=== PATIENT | female | born 1985 | race African-American/Black ===

== ENCOUNTER 2020-09-02 09:31 | Emergency (ER) | payer OTHER, SELFPAY ==
[2020-09-02 09:43] VITALS: BP 121/72; PULSE 78; RESP 16; TEMP 36.4; O2SAT 100
--- NOTE | 2020-09-02 09:48 | ED.DENTAL ---
HPI - Dental/Oral General Chief complaint: Dental/Oral Stated complaint: Tooth Pain Source: patient and RN notes reviewed Limitations: no limitations History of Present Illness HPI Narrative: The patient, previously mostly healthy with poor dentition, presents with tooth ache. Patient states she has a couple day history of right upper tooth pain associated with mild swelling. She has had prior dental procedures there [about 6 months ago], no fever, hoarseness, trismus; symptoms worse with eating. She would like refill of her inhaler. Related Data Allergies Allergy/AdvReac Type Severity Reaction Status Date / Time prochlorperazine Allergy Intermediate hives Verified 04/30/18 12:13 NSAIDS (Non-Steroidal Allergy Mild Hives / Verified 04/30/18 12:13 Anti-Inflamma Red Face Review of Systems Review of Systems: Narrative: General/Constitutional: No weight loss,fever Eyes: N0: Redness,discharge Ears/Nose/Throat: No: Epistaxis,ear discharge Respiratory: Denies: Hemoptysis Gastrointestinal: No Vomiting, Bleeding-rectal Skin: No Lumps, eruption Neurologic: No Focal Weakness,Sz Hematologic: Denies: Petechiae/Purpura Psychiatric: No: Suicida ideationl All Other Systems: Reviewed and Negative PMFSH Comments At time of signature, agree with nursing past medical, surgical, social and family history. There is no relevant family history pertinent to the presenting complaint Exam Narrative: Exam Narrative: General Appearance: Well appearing, Well nourished, Obese EYE: PERRLA, EOMI, Conjunctiva clear Ears: External ear normal, Auditory canal normal Nose: Normal nose Mouth/Throat: Normal appearing (with scant right upper jaw swelling), Normal lips, MM moist, Uvula midline (scattered dental caries and fillings,, with rare fracture) Neck: Supple, No adenopathy Respiratory: Airway patent, No respiratory distress, Musculoskeletal: Full ROM, Non tender, Normal strength Skin: Warm, Dry, Normal color Neurological: A&O x3, Speech clear, CN II-XII intact Psychiatric: Normal mood, Normal affect Course Vital Signs Vital signs: Vital Signs Temperature 97.6 F 09/02/20 09:43 Pulse Rate 78 09/02/20 09:43 Respiratory Rate 16 09/02/20 09:43 Blood Pressure 121/72 09/02/20 09:43 Pulse Oximetry 100 09/02/20 09:43 Temperature 97.6 F 09/02/20 09:43 Pulse Rate 78 09/02/20 09:43 Respiratory Rate 16 09/02/20 09:43 Blood Pressure 121/72 09/02/20 09:43 Pulse Oximetry 100 09/02/20 09:43 Discharge Plan Discharge Clinical Impression: Gingivitis, Toothache Patient Disposition: Home, Self-Care Condition: Stable Instructions: Toothache (ED) Prescriptions: New amoxicillin 875 mg tablet 875 mg PO Q12H Qty: 14 RF: 0 lidocaine HCl [Lidocaine Viscous] 2 % solution 5 ml MUCOUS MEM QID PRN (Reason: pain) Qty: 100 RF: 1 tramadol 50 mg tablet 50 mg PO Q6H PRN (Reason: pain) Qty: 10 RF: 0 albuterol sulfate [Ventolin HFA] 90 mcg/actuation HFA aerosol inhaler 2 puff INHALATION QID PRN (Reason: shortness of breath or wheezing) Qty: 1 RF: 1 Follow-up/Referrals: PHYSICIAN NOT ON STAFF,NONSTAFF [Primary Care Provider] - Stand Alone Forms: Work/School Release IP
== END 2020-09-02 10:05 | disposition home or self-care (01) ==
PROVIDERS: Emergency Provider Emergency Medicine
DX: K05.10 Chronic gingivitis, plaque induced (principal); K08.89 Other specified disorders of teeth and supporting structures; J45.909 Unspecified asthma, uncomplicated
CPT/HCPCS: 99213; G0463

== ENCOUNTER 2020-10-20 19:34 | Emergency (ER) | payer OTHER, SELFPAY ==
--- NOTE | 2020-10-20 19:39 | ED.DENTAL ---
HPI - Dental/Oral General Chief complaint: Dental/Oral Stated complaint: tooth pain Source: patient and RN notes reviewed Limitations: no limitations History of Present Illness HPI Narrative: The patient, previously history of poor dentition, presents with upper jaw pain. 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 She complains of mild left upper incisor pain that is worse with eating. No actual swelling, laxity/looseness, subluxation, fever. Related Data Allergies Allergy/AdvReac Type Severity Reaction Status Date / Time prochlorperazine Allergy Intermediate hives Verified 10/20/20 19:47 NSAIDS (Non-Steroidal Allergy Mild Hives / Verified 10/20/20 19:47 Anti-Inflamma Red Face Review of Systems Review of Systems: Narrative: General/Constitutional: No weight loss,fever Eyes: N0: Redness,discharge Ears/Nose/Throat: No: Epistaxis,ear discharge Respiratory: Denies: Hemoptysis Gastrointestinal: No Vomiting, Bleeding-rectal Skin: No Lumps, eruption Neurologic: No Focal Weakness,Sz Hematologic: Denies: Petechiae/Purpura Psychiatric: No: Suicida ideationl All Other Systems: Reviewed and Negative PMFSH Social History Social History Gender identity (if verbalized by the patient): Female Comments At time of signature, agree with nursing past medical, surgical, social and family history. There is no relevant family history pertinent to the presenting complaint Exam Narrative: Exam Narrative: General Appearance: Well appearing, Well nourished, Obese EYE: PERRLA, EOMI, Conjunctiva clear Ears: External ear normal, Auditory canal normal Nose: Normal nose Mouth/Throat: Normal appearing (without jaw swelling), Normal lips, MM moist, Uvula midline -scattered dental caries and fillings, no dental mobility Neck: Supple, No adenopathy Musculoskeletal: Full ROM, Non tender, Normal strength Skin: Warm, Dry, Normal color Neurological: A&O x3, Speech clear, CN II-XII intact Psychiatric: Normal mood, Normal affect Course Vital Signs Vital signs: Vital Signs Temperature 97.3 F L 10/20/20 19:41 Pulse Rate 71 10/20/20 19:41 Respiratory Rate 16 10/20/20 19:41 Blood Pressure 124/93 H 10/20/20 19:41 Pulse Oximetry 99 10/20/20 19:41 Temperature 97.3 F L 10/20/20 19:41 Pulse Rate 71 10/20/20 19:41 Respiratory Rate 16 10/20/20 19:41 Blood Pressure 124/93 H 10/20/20 19:41 Pulse Oximetry 99 10/20/20 19:41 Discharge Plan Discharge Clinical Impression: Contusion of jaw Qualifiers: Encounter type: initial encounter Qualified Code(s): S00.83XA - Contusion of other part of head, initial encounter Patient Disposition: Home, Self-Care Condition: Stable Instructions: Toothache (ED), Facial Contusion (ED) Prescriptions: New lidocaine HCl [Lidocaine Viscous] 2 % solution 5 ml MUCOUS MEM QID PRN (Reason: pain) Qty: 100 RF: 0 acetaminophen-codeine 120 mg-12 mg /5 mL (5 mL) solution 7.5 ml PO Q8H Qty: 100 RF: 0 amoxicillin 500 mg capsule 500 mg PO TID Qty: 14 RF: 0 Follow-up/Referrals: UNKNOWN,DOCTOR [Primary Care Provider] - Stand Alone Forms: Work/School Release IP
[2020-10-20 19:41] VITALS: BP 124/93; PULSE 71; RESP 16; TEMP 36.3; O2SAT 99
== END 2020-10-20 19:57 | disposition home or self-care (01) ==
PROVIDERS: Emergency Provider Emergency Medicine
DX: S00.83XA Contusion of other part of head, initial encounter (principal); X58.XXXA Exposure to other specified factors, initial encounter; J45.909 Unspecified asthma, uncomplicated
CPT/HCPCS: 99213; G0463

== ENCOUNTER 2021-11-07 19:40 | Emergency (ER) | payer OTHER, SELFPAY ==
--- NOTE | 2021-11-07 19:43 | ED.HA ---
HPI - Headache General Chief Complaint: Headache Stated Complaint: lund Time Seen by Provider: 11/07/21 19:44 Source: patient and RN notes reviewed Mode of arrival: ambulatory Limitations: no limitations History of Present Illness HPI Narrative: 36-year-old female presents to the [facility] with complaints of a headache to the left side of her head. Has had the symptoms for 2 to 3 days. States that she has taken ibuprofen at home. Denies any allergies to NSAIDs. Has had nausea without vomiting, intermittent blurry vision. States it feels similar to migraines she has had in the past Denies any chest pain or shortness of breath. Denies fevers. Has a history of hypertension. Patient reports that she has had tramadol in the past, explained to patient that we do not prescribe narcotics for migraine headaches. Drove herself here without issue. No neurodeficits noted. MD elicited complaint: headache Pertinent past history: migraines Onset (ago): day(s) (2-3) Location: left and temporal Treatments prior to arrival: ibuprofen Related Data Allergies Allergy/AdvReac Type Severity Reaction Status Date / Time prochlorperazine Allergy Intermediate hives Verified 11/07/21 19:42 Review of Systems Review of Systems: All systems reviewed & are unremarkable except as noted in HPI and below Constitutional: Constitutional: Reports no additional constitutional complaints, Denies chills and Denies fever(s) Eyes: Eyes: Reports no additional eye complaints ENT: Reports system reviewed and no additional complaints, except as documented Cardiovascular: Cardiovascular: Reports no additional cardiovascular complaints Respiratory: Respiratory: Reports no additional respiratory complaints Gastrointestinal: Gastrointestinal: Reports no additional gastrointestinal complaints Musculoskeletal: Musculoskeletal: Reports no additional musculoskeletal complaints Integumentary/Breasts: Skin/Breast: Reports system reviewed and no additional complaints, except as docu Neurologic: Reports as per HPI and Reports headache(s) (left temporal area) Psychiatric: Psychiatric: Reports no additional psychiatric complaints Allergic/Immunologic: Allergic/Immunologic: Reports no additional allergic/immunologic complaints [facility] Social History Social History Gender identity (if verbalized by the patient): Female Comments At the time of my signature, I reviewed and agree with the nursing past medical, surgical, social, and family history. There is no relevant family history pertinent to the patient complaint. Exam Const: General: healthy appearing, no acute distress and alert Nutritional Appearance: well nourished Orientation/consciousness: patient oriented x3 Limitations: no limitations HENMT: Head: normal to inspection Ears: external ears normal, TM's normal bilaterally and EAC's normal General nose exam: Normal external nose present Mouth: Yes Normal oral and palatal mucosa present and Yes lip normal Throat: posterior oropharynx normal and uvula midline Eyes: General: appearance normal, both eyes and all related structures Conjunctivae: conjunctivae normal Pupils: Equal, round and reactive pupils present EOM: EOMs intact bilaterally Neck: Neck: normal visual inspection, no lymphadenopathy and no meningeal signs Chest: Chest palpation & inspection: normal inspection of the chest Resp: Effort & Inspection: normal respiratory effort and no use of accessory muscles Auscultation: clear to auscultation bilaterally, no crackles, no rales, no rhonchi and no wheezes Cardio: Rate: regular rate Rhythm: regular rhythm Back/Spine/Pelvis: Cervical Spine: normal cervical lordosis Thoracic/Lumbar Spine: thoracic and lumbar spine normal to inspection Skin: General skin exam: normal color Rashes: no rashes Wounds: no wounds Neuro: General: patient oriented x3, moves all extremities, no meningeal signs and
[2021-11-07 19:46] VITALS: BP 141/88; PULSE 74; RESP 18; TEMP 36.9; O2SAT 100
[2021-11-07] MEDS: KETOROLAC (*BKC) 60 MG/2 ML VIAL IM (20:03)
== END 2021-11-07 20:25 | disposition home or self-care (01) ==
PROVIDERS: Emergency Provider Nurse Practitioner
DX: R51.9 Headache, unspecified (principal); J45.909 Unspecified asthma, uncomplicated
CPT/HCPCS: 96372; 99213; G0463; J1885

== ENCOUNTER 2021-11-08 11:31 | Emergency (ER) | payer OTHER, SELFPAY ==
[2021-11-08 11:40] VITALS: BP 126/85; PULSE 85; RESP 16; TEMP 36.2; O2SAT 100
--- NOTE | 2021-11-08 12:34 | ED.DENTAL ---
HPI - Dental/Oral General Chief complaint: Dental/Oral Stated complaint: Facial Swelling Time Seen by Provider: 11/08/21 12:26 Source: patient Mode of arrival: ambulatory Limitations: no limitations History of Present Illness HPI Narrative: Patient presents today complaining of a throbbing pain to her left upper jaw that started this morning. She is also complaining of swelling to the same area that extends below her eye and to the left side of her nose that was present when she woke up this morning. States, It's probably and tooth. States she does have some bad teeth and reports that when they went to pull some teeth they damaged a nerve in the same area. She was seen [facility] yesterday for a migraine and was treated with IM Toradol and rx for Ibuprofen. She denies any shortness of breath or difficulty swallowing. She currently rates her pain 10/10 and has been taking ibuprofen with some relief. Related Data Allergies Allergy/AdvReac Type Severity Reaction Status Date / Time prochlorperazine Allergy Intermediate hives Verified 11/08/21 11:34 Review of Systems Review of Systems: CONSTITUTIONAL: Denies body aches, fever, chills, or sweats. EYES: Denies visual changes, redness, or discharge. ENT: Denies rhinorrhea, congestion, sore throat, or otalgia. +Left upper jaw pain and swelling CARDIOVASCULAR: Denies chest pain, palpitations, or edema. RESPIRATORY: Denies cough or dyspnea. GASTROINTESTINAL: Denies abdominal pain, nausea, vomiting, or diarrhea. GENITOURINARY: Denies dysuria or hematuria. SKIN: Denies rash, itching, or wounds. MUSCULOSKELETAL: Denies back pain, joint pain, or myalgia. NEUROLOGIC: Denies headache, numbness, tingling, or weakness. PSYCH: Denies depression or anxiety. PMFSH Social History Social History Gender identity (if verbalized by the patient): Female Comments At time of signature, I have reviewed and agree with nursing past medical, surgical, social and family history unless otherwise noted. Please see nursing chart for further information. There is no relevant family history pertinent to the presenting complaint Exam Narrative: GENERAL: Well-appearing, well-nourished, and in no acute distress. HEAD: Normocephalic, atraumatic. EYES: EOMI. No redness or drainage. Conjunctivae normal. ENT: Mucous membranes pink and moist. Nares clear. No rhinorrhea. Throat normal. Uvula midline. Poor dentition. Multiple dark and missing teeth. Mild to moderate swelling in the left upper jawline extending below her left eye and to the left side of her nose. This area is tender to palpation. NECK: Normal AROM. CHEST: No respiratory distress. Clear to auscultation. HEART: Regular rate and rhythm. No murmur appreciated. Normal peripheral pulses. EXTREMITIES: Normal range of motion. No edema. SKIN: Warm, dry, no rash. Capillary refill normal. Normal skin turgor. NEURO: No focal deficits. Alert and oriented x3. Gait steady. PSYCH: Normal affect. No signs of depression or anxiety. Course Course Level of Care: Express Care Visit Vital Signs Vital signs: Vital Signs Temperature 97.1 F L 11/08/21 11:40 Pulse Rate 85 11/08/21 11:40 Respiratory Rate 16 11/08/21 11:40 Blood Pressure 126/85 11/08/21 11:40 Pulse Oximetry 100 11/08/21 11:40 Oxygen Delivery Room Air 11/08/21 11:40 Temperature 97.1 F L 11/08/21 11:40 Pulse Rate 85 11/08/21 11:40 Respiratory Rate 16 11/08/21 11:40 Blood Pressure 126/85 11/08/21 11:40 Pulse Oximetry 100 11/08/21 11:40 Oxygen Delivery Room Air 11/08/21 11:40 Reviewed. Pt has been instructed to follow up with her PCP regarding her elevated blood pressure today. MDM - Dental/Oral Differential Diagnosis Differential diagnosis: Likely gingival abscess, dental caries, toothache, dental abscess and fracture of tooth Critical Care Time Critical Care Time Critical Care Time: No
== END 2021-11-08 12:38 | disposition home or self-care (01) ==
PROVIDERS: Emergency Provider Nurse Practitioner
DX: K04.7 Periapical abscess without sinus (principal)
CPT/HCPCS: 99213; G0463

== ENCOUNTER 2021-12-27 12:37 | Emergency (ER) | payer OTHER, SELFPAY ==
[2021-12-27 12:45] VITALS: BP 134/82; PULSE 82; RESP 16; TEMP 36.7; O2SAT 99
[2021-12-27 12:46] VITALS: BP 134/82; PULSE 82; RESP 16; TEMP 36.7; O2SAT 99
--- NOTE | 2021-12-27 12:55 | ED.EYEPROB ---
HPI - Eye Problem General Chief complaint: Eye Problems Stated complaint: Headaches, light sensitivity Time Seen by Provider: 12/27/21 12:56 History of Present Illness HPI Narrative: Pavan Cuellar is a 36 yo female with no PMH [facility] of left-sided eye pain that she rates a 7 out of 10; right eye slightly reddened and rates it as 4 out of 10. Think she may have scratched her eye on her contacts Related Data Allergies Allergy/AdvReac Type Severity Reaction Status Date / Time prochlorperazine Allergy Intermediate hives Verified 12/27/21 12:46 Review of Systems Review of Systems: CONSTITUTIONAL: Denies fever, chills, sweats. EYES: Denies visual changes, redness, discharge. Bilateral eye pain possibly from contact scratch ENT: Denies rhinorrhea, congestion, sore throat, otalgia. CARDIOVASCULAR: Denies chest pain, palpitations, edema. RESPIRATORY: Denies dyspnea, wheezing, cough GASTROINTESTINAL: Denies abdominal pain, nausea, vomiting, diarrhea. GENITOURINARY: Denies dysuria, hematuria, abnormal discharge SKIN: Denies rash or itching. NEUROLOGIC: Denies numbness, or focal weakness. PSYCHIATRIC: Denies anxiety or depression. [facility] Past Medical History Medical History (Updated 12/27/21 @ 13:17 by Patito Restrepo CNP) Asthma Social History Social History (Updated 12/27/21 @ 12:59 by Patito Restrepo CNP) Smoking status: Never smoker Gender identity (if verbalized by the patient): Female Comments At time of signature, I agree with nursing past medical, surgical, social and family history. There is no relevant family history pertinent to the presenting complaint. Exam Narrative: GENERAL: This is a well-nourished, well-developed patient, in mild distress. HEAD: normocephalic, atraumatic. EYES: PERRL. Sclera mildly injected bilaterally. Vision is grossly intact. Bilateral eyes are painful after use of tetracaine EARS: External ears normal, . Hearing grossly intact. NOSE: External nose normal without nasal discharge, nares without redness, no rhinorrhea. THROAT: Mucous membranes moist, NECK: Neck supple, non-tender CARDIOVASCULAR: Regular rate and rhythm without murmurs, gallops, or rubs. RESPIRATORY: Clear to auscultation. Breath sounds equal bilaterally. No wheezes, rales, or rhonchi. GASTROINTESTINAL: Not done, SKIN: warm, intact with no suspicious lesions or rash, good texture and turgor. NEURO: awake, alert, and oriented to person, place and time. There were no obvious focal neurologic abnormalities. Steady gait EXTREMITIES: Normal range of motion. BACK: Nontender without deformity Course Course Emergency Course: Bilateral eye pain left worse than right Fluorescein stain applied after tetracaine drops instilled. 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 does not improve Level of Care: Express Care Visit Vital Signs Vital signs: Vital Signs Temperature 98.1 F 12/27/21 12:45 Pulse Rate 82 12/27/21 12:45 Respiratory Rate 16 12/27/21 12:45 Blood Pressure 134/82 12/27/21 12:45 Pulse Oximetry 99 12/27/21 12:45 Oxygen Delivery Room Air 12/27/21 12:45 Temperature 98.1 F 12/27/21 12:46 Pulse Rate 82 12/27/21 12:46 Respiratory Rate 16 12/27/21 12:46 Blood Pressure 134/82 12/27/21 12:46 Pulse Oximetry 99 12/27/21 12:46 Oxygen Delivery Room Air 12/27/21 12:46 MDM - Eye Problem Differential Diagnosis Differential diagnosis: Likely corneal abrasion, conjunctivitis and other Critical Care Time Critical Care Time Critical Care Time: No Discharge Plan Discharge Clinical Impression: Bacterial conjunctivitis Patient Disposition: Home, Self-Care Condition: Stable Instructions: Antibiotic Form, Conjunctivitis (ED) Additional Instructions: Use eyedrops to 4 times a day a
--- NOTE | 2021-12-27 13:03 | PC.NURSE ---
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
== END 2021-12-27 13:22 | disposition home or self-care (01) ==
PROVIDERS: Emergency Provider Nurse Practitioner
DX: H10.89 Other conjunctivitis (principal); J45.909 Unspecified asthma, uncomplicated
CPT/HCPCS: 99213; A9270; G0463

== ENCOUNTER 2022-03-11 12:35 | Emergency (ER) | payer OTHER, SELFPAY ==
--- NOTE | 2022-03-11 12:40 | ED.GENADULT ---
HPI - General Adult General Chief complaint: Dental/Oral Stated complaint: Face Swelling Time Seen by Provider: 03/11/22 12:40 Source: patient Mode of arrival: ambulatory Limitations: no limitations History of Present Illness HPI narrative: Pavan is a 36-year-old female patient presenting to the clinic today with complaints of facial swelling x2 days. She reports her pain is currently 10 at 10. She states she thinks there may be an exposed nerve. She is having pain to the left upper gum with pain also over this maxillary sinuses. Patient states that she has been having some dental work done and thinks her may be an exposed /infected nerve. She has taken only Tylenol today for her pain Related Data Allergies Allergy/AdvReac Type Severity Reaction Status Date / Time prochlorperazine Allergy Intermediate hives Verified 03/11/22 12:45 Review of Systems Review of Systems: Pertinent positives per HPI. Patient denies any fever, chills, rash, headache, visual changes, dizziness, cough, runny nose, sore throat, shortness of breath, chest pain, palpitations, nausea, vomiting, diarrhea, constipation, abdominal pain, or any urinary issues. [facility], [facility] Past Medical History Medical History Asthma Social History Social History Smoking status: Never smoker Gender identity (if verbalized by the patient): Female Comments At the time of my signature, I reviewed and agree with the nursing past medical, surgical, social, and family history. There is no relevant family history pertinent to the patient complaint. Exam Narrative: General: Well-developed, well nourished, in no apparent distress Head: Normocephalic, atraumatic Eyes: Pupils equally round and reactive to light bilaterally, EOM intact, sclera and conjunctive clear, no discharge, lids normal Ears: TMs intact and clear, ear canals clear, no drainage, grossly hearing normal. Nose: Nares patent, no discharge, severe inflammation to left anterior and posterior turbinates, severe left maxillary sinus tenderness. Mouth: Oropharynx without lesions or masses, good dentition, MMM. Tenderness to palpation of the left upper gum and raising of the left upper lip. Unable to visualize the gum due to discomfort- patient will not allow me to raise her lips up to visualize the gums. Neck: Supple, trachea midline, no enlargement of anterior or posterior cervical nodes, no thyroid masses or goiter palpable. Cardio: Regular rate and rhythm, s1 and s2 normal, no murmur appreciated. Resp: Clear to auscultation bilaterally anteriorly and posteriorly, no rhonchi, rales, wheezing or rubs Course Course Emergency Course: Portions of this record may have been created with voice recognition software. Level of Care: Express Care Visit Vital Signs Vital signs: Vital Signs Temperature 36.7 C 03/11/22 12:42 Pulse Rate 92 03/11/22 12:42 Respiratory Rate 16 03/11/22 12:42 Blood Pressure 137/94 H 03/11/22 12:42 Pulse Oximetry 98 03/11/22 12:42 Oxygen Delivery Room Air 03/11/22 12:42 Temperature 36.7 C 03/11/22 12:42 Pulse Rate 92 03/11/22 12:42 Respiratory Rate 16 03/11/22 12:42 Blood Pressure 137/94 H 03/11/22 12:42 Pulse Oximetry 98 03/11/22 12:42 Oxygen Delivery Room Air 03/11/22 12:42 Vital signs reviewed Medical Decision Making MDM Narrative Medical decision making narrative: At the time of visit patient is resting comfortably on the exam table. Exam was very limited due to patient's extreme pain however I suspect she may have a dental abscess versus sinusitis to the left maxillary sinus. Will send in prescription for some prednisone and Augmentin. Toradol 60 mg IM given in the clinic today for pain. Differential Diagnosis Differential Diagnosis: dental abscess, sinusitis infection Vital Signs Vital Signs: Vital Si
[2022-03-11 12:42] VITALS: BP 137/94; PULSE 92; RESP 16; TEMP 36.7; O2SAT 98
[2022-03-11] MEDS: KETOROLAC (*BKC) 60 MG/2 ML VIAL IM (12:52)
== END 2022-03-11 13:27 | disposition home or self-care (01) ==
PROVIDERS: Emergency Provider Nurse Practitioner Family
DX: K04.7 Periapical abscess without sinus (principal); J32.9 Chronic sinusitis, unspecified; J45.909 Unspecified asthma, uncomplicated
CPT/HCPCS: 96372; 99213; G0463; J1885

== ENCOUNTER 2023-02-24 19:48 | Emergency (ER) | payer OTHER, SELFPAY ==
--- NOTE | 2023-02-24 19:50 | ED.DENTAL ---
HPI - Dental/Oral General Chief complaint: Dental/Oral Stated complaint: left tooth pain Source: patient Mode of arrival: ambulatory History of Present Illness HPI Narrative: 37 y/o female with history of poor dentition and dental abscess presented for c/o left upper dental pain and mild facial swelling over the site for 2 days. States she has not been able to establish with a dentist or oral surgeon, and once every year she has this problem. Took Tramadol yesterday and it made her 'high.' denies ear pain, nausea vomiting, diarrhea, fevers or chills. MD Complaint: tooth pain Related Data Allergies Allergy/AdvReac Type Severity Reaction Status Date / Time prochlorperazine Allergy Intermediate hives Verified 02/24/23 19:49 Review of Systems Review of Systems: CONSTITUTIONAL: Denies body aches, fever, chills ENT: Denies rhinorrhea, congestion, sore throat, or otalgia. Reports dental pain and facial swelling. CARDIOVASCULAR: Denies chest pain, palpitations RESPIRATORY: Denies cough or dyspnea. SKIN: Denies rash, itching, or wounds. MUSCULOSKELETAL: Denies myalgia. NEUROLOGIC: Denies headache, numbness, tingling, or weakness. [facility] Past Medical History Medical History Asthma Social History Social History Smoking status: Never smoker Gender identity (if verbalized by the patient): Female Comments At time of signature, I have reviewed and agree with nursing past medical, surgical, social and family history unless otherwise noted. Please see nursing chart for further information. There is no relevant family history pertinent to the presenting complaint Exam Narrative: GENERAL: Appears in mild pain; no acute distress. HEAD: Normocephalic, atraumatic. EYES: EOMI. No redness or drainage. Conjunctivae normal. ENT: Dental pain location of gumline over #10-11 with erythema to gum. Poor dentition to uppers with all broken/decayed and missing teeth. Mild swelling and tenderness to left maxilla. Mucous membranes pink and moist. TMs normal bilaterally. Throat normal. Uvula midline. NECK: Normal AROM. No lymphadenopathy. CHEST: No respiratory distress. Clear to auscultation. HEART: Regular rate and rhythm. No murmur appreciated. SKIN: Warm, dry, no rash. Normal skin turgor. NEURO: No focal deficits. Alert and oriented x3. Gait steady. Course Course Emergency Course: Patient is aware of diagnosis, understands and agrees to treatment plan. Anticipatory guidance given. Patient agrees to follow-up as directed and is aware of reasons to seek care at the emergency department. Portions of this record may have been created with voice recognition software Level of Care: Express Care Visit MDM - Dental/Oral MDM Narrative Medical decision making narrative: Patients pain and complaint coupled with physical findings are consistent with dentalgia/ dental abscess. There are no focal signs of space occupying lesions that are compromising to the airway; no dysphagia, odynophagia, dysphonia, or dyspnea. No uvular deviation or soft palate edema. Patient is non-toxic appearing. The floor of the mouth is soft with no signs of Kieran's Angina; no induration below mandible, no neck pain. Patient is without trismus or drooling and able to swallow secretions. Discussed physical exam findings. Advised supportive measures and signs/symptoms to go to the ER. Pt is appropriate for outpt treatment and f/u with dentist. List of dentists provided. Differential Diagnosis Differential diagnosis: Likely gingival abscess, dental caries, toothache, dental abscess, fracture of tooth and aphthous ulcer Discharge Plan Discharge Clinical Impression: Dental abscess Patient Disposition: Home, Self-Care Condition: Stable Instructions: Antibiotic Form, Dental Abscess (ED) Additional Instructions: Take antibiotic as directed
[2023-02-24 19:55] VITALS: BP 131/92; PULSE 86; RESP 16; TEMP 36.3; O2SAT 98
== END 2023-02-24 20:02 | disposition home or self-care (01) ==
PROVIDERS: Emergency Provider Nurse Practitioner Family
DX: K04.7 Periapical abscess without sinus (principal); J45.909 Unspecified asthma, uncomplicated
CPT/HCPCS: 99213; G0463

== ENCOUNTER 2023-05-17 16:12 | Emergency (ER) | payer OTHER, SELFPAY ==
[2023-05-17 16:36] VITALS: BP 130/90; PULSE 80; RESP 20; TEMP 36.7; O2SAT 100
--- NOTE | 2023-05-17 17:13 | ED.SKABFB ---
HPI - Skin/Abscess/Foreign Bdy General Chief complaint: Extremity Problem,Nontraumatic Stated complaint: Left Hand Finger Pain Time Seen by Provider: 05/17/23 17:11 Source: patient and RN notes reviewed Mode of arrival: ambulatory Limitations: no limitations History of Present Illness HPI narrative: 38-year-old female presents with concern for pain, redness, swelling to the distal end of the 2nd digit of left hand. Reports she got a small cut near the fingernail couple days ago when she was braiding her daughter's hair. She reports symptoms started after that. She denies drainage or fluctuation. MD complaint: other Related Data Allergies Allergy/AdvReac Type Severity Reaction Status Date / Time prochlorperazine Allergy Intermediate hives Verified 05/17/23 16:39 Review of Systems Review of Systems: CONSTITUTIONAL: Denies malaise, chills, sweats, or fever. EYES: Denies redness, or discharge. ENT: Denies rhinorrhea, congestion, swollen lips, swollen tongue CARDIOVASCULAR: Denies chest pain, palpitations, or edema. RESPIRATORY: Denies cough or dyspnea. GASTROINTESTINAL: Denies abdominal pain, nausea, vomiting SKIN: Reports redness, warmth, tenderness to the 2nd digit of the left hand MUSCULOSKELETAL: Denies joint pain or myalgia. NEUROLOGIC: Denies headache. All systems reviewed & are unremarkable except as noted in HPI and below PMFSH Past Medical History Medical History Asthma Social History Social History Smoking status: Never smoker Gender identity (if verbalized by the patient): Female Comments At time of signature, agree with nursing past medical, surgical, social and family history. There is no relevant family history pertinent to the presenting complaint Exam Narrative: GENERAL: Well-appearing, well-nourished, and in no acute distress. HEAD: Normocephalic, atraumatic. EYES: PERRLA, conjunctivae clear, and EOMI. ENT: Mucous membranes moist. Oropharynx without edema, erythema or lesions. NECK: Supple. No lymphadenopathy CHEST: Clear to auscultation. No respiratory distress. HEART: Regular rate and rhythm. SKIN: Warm, dry. Erythema, edema, tenderness surrounding the nail bed of the 2nd digit of left hand without fluctuation or drainage noted NEURO: Alert and oriented x3. PSYCH: Normal mood and affect Course Course Emergency Course: Patient is aware of diagnosis, understands and agrees to treatment plan. Anticipatory guidance given. Patient agrees to follow-up as directed and is aware of reasons to seek care at the emergency department. Portions of this record may have been created with voice recognition software Level of Care: Express Care Visit Vital Signs Vital signs: Vital Signs Temperature 98.0 F 05/17/23 16:36 Pulse Rate 80 05/17/23 16:36 Respiratory Rate 20 05/17/23 16:36 Blood Pressure 130/90 05/17/23 16:36 Pulse Oximetry 100 05/17/23 16:36 Oxygen Delivery Room Air 05/17/23 16:36 Temperature 98.0 F 05/17/23 16:36 Pulse Rate 80 05/17/23 16:36 Respiratory Rate 20 05/17/23 16:36 Blood Pressure 130/90 05/17/23 16:36 Pulse Oximetry 100 05/17/23 16:36 Oxygen Delivery Room Air 05/17/23 16:36 Reviewed. MDM - Skin/Abscess/Foreign Bdy MDM Narrative Medical decision making narrative: Exam findings show no acute concerns or changes; patient is non-toxic appearing and is in no distress. Patient is appropriate for outpatient treatment and follow-up. Critical Care Time Critical Care Time Critical Care Time: No Discharge Plan Discharge Clinical Impression: Paronychia Patient Disposition: Home, Self-Care Condition: Stable Instructions: Antibiotic Form, Paronychia (ED) Additional Instructions: Soak your nail: Soak your nail in a mixture of equal parts vinegar and water 3 or 4 times each day. This will help decrease inf
== END 2023-05-17 17:22 | disposition home or self-care (01) ==
PROVIDERS: Emergency Provider Nurse Practitioner
DX: L03.012 Cellulitis of left finger (principal)
CPT/HCPCS: 99213; G0463

== ENCOUNTER 2024-10-27 16:20 | Emergency (ER) | payer OTHER, SELFPAY ==
--- NOTE | 2024-10-27 16:25 | ED.HA ---
HPI - Headache General Chief Complaint: Headache Stated Complaint: Migraines Time Seen by Provider: 10/27/24 16:22 Source: patient Mode of arrival: ambulatory Limitations: no limitations History of Present Illness HPI Narrative: Patient is a 39-year-old female who presents with sinus pressure, congestion for over 1 week with sinus headache starting yesterday primarily on the left side. Patient has taken Tylenol and ibuprofen with no relief. Reports tenderness to left side cheek. Patient states she does also have poor dentition and frequent dental pain on left upper. Related Data Home Medications ?Medication ?Instructions ?Recorded ?Confirmed ?Last Taken ?Type dextroamphetamine-amphetamine ER PO 10/27/24 Unknown History 20 mg 24hr capsule,extend release escitalopram oxalate 10 mg tablet mg 10/27/24 Unknown History hydroxyzine HCl 25 mg tablet mg 10/27/24 Unknown History Allergies Allergy/AdvReac Type Severity Reaction Status Date / Time prochlorperazine Allergy Intermediate hives Verified 10/27/24 16:37 Review of Systems Review of Systems: All systems reviewed & are unremarkable except as noted in HPI and below Constitutional: Constitutional: Denies body ache(s), Denies chills, Denies fatigue, Denies fever(s), Reports headache(s), Denies malaise and Denies weakness Eyes: Eyes: Denies blurry vision, Denies irritation and Denies loss of vision ENT: Denies otalgia, Reports headache(s), Reports nasal congestion, Denies nasal discharge, Reports sinus pain, Reports sinus pressure and Denies sore throat Cardiovascular: Cardiovascular: Denies chest pain, Denies irregular heart rhythm and Denies dyspnea Respiratory: Respiratory: Denies dyspnea Gastrointestinal: Gastrointestinal: Denies abdominal pain, Denies melena, Denies hematochezia, Denies diarrhea, Denies nausea and Denies vomiting Musculoskeletal: Musculoskeletal: Denies back pain, Denies myalgias and Denies arthralgias Integumentary/Breasts: Skin/Breast: Denies pruritus and Denies rash Neurologic: Reports headache(s), Denies loss of vision and Denies weakness Psychiatric: Psychiatric: Reports no additional psychiatric complaints Endocrine: Endocrine: Denies fatigue PMFSH Past Medical History Medical History Asthma Social History Social History Smoking status: Never smoker Gender identity (if verbalized by the patient): Female Comments At time of signature, agree with nursing past medical, surgical, social and family history. There is no relevant family history pertinent to the presenting complaint. Exam Const: General: cooperative, healthy appearing, comfortable, no acute distress and well nourished Nutritional Appearance: well nourished Orientation/consciousness: patient oriented x3 Limitations: no limitations HENMT: Head: normal to inspection, normocephalic and atraumatic Ears: hearing grossly normal bilaterally, external ears normal, TM's normal bilaterally and EAC's normal Face/Nose/Sinus: Normal external nose present, normal facial exam, face symmetric and Facial tenderness on exam of face and sinuses Face and sinus: normal facial exam, face symmetric and sinus tenderness maxillary (left) Mouth: Yes Normal oral and palatal mucosa present, Yes lip normal and Yes tongue normal Teeth and gingiva: abnormal tooth and associated gingiva upper left lateral incisor tender, with associated gingival edema and other (significant decay) and poor dentition Eyes: General: appearance normal, both eyes and all related structures Alignment and Position: alignment normal and position normal Periorbital: periorbital findings normal Eyelids: eyelids normal Pupils: Equal, round and reactive pupils present EOM: EOMs intact bilaterally Neck: Neck: normal visual inspection, full ROM and supple Chest: Chest palpation & inspection: normal inspection of the chest Resp: Effort & Inspection: normal respiratory effort and able to speak in complete sentences Auscultation: clear to auscultation bilaterally Cardio: Rate: regular rate Rhythm: regular rhythm Heart sounds: S1 normal heart sound present and S2 normal heart sound present GI: Inspection: normal to inspection Skin: General skin exam: normal color and no rashes or lesions noted Neuro: General: patient oriented x3 and moves all extremities Cranial nerves: Yes Equal, round and reactive pupils present Speech: normal speech Gait exam (Neuro): Normal gait present Extrem: General: normal to inspection, full ROM and no edema Psych: Appearance: grossly normal and well kempt Mental Status: mental status grossly normal Speech and movement: Normal speech and movement present Affect: normal affect Attitude: cooperative Thought process: Normal thought process present Course Course Emergency Course: Patient is aware of diagnosis, understands and agrees to treatment plan. Anticipatory guidance given. Patient agrees to follow-up as directed and is aware of reasons to seek care at the emergency department. Portions of this record may have been created with voice recognition software Level of Care: Express Care Visit Vital Signs Vital signs: Reviewed MDM - Headache MDM Narrative Medical decision making narrative: Patients pain and complaint coupled with physical findings are consistant with sinusitis/dental infection. There are no focal signs of space occupying lesions that are compromising to the airway; no dysphagia, odynophagia, dysphonia, or dyspnea. No uvular deviation or soft palate edema. Patient is non-toxic appearing. The floor of the mouth is soft with no signs of Kieran's Angina; no induration below mandible, no neck pain. Patient is without trismus or drooling and able to swallow secretions. Patient is felt appropriate for discharge home with dental follow up. Differential Diagnosis Differential diagnosis: Likely migraine, tension headache, headache, sinusitis and other (Dental infection) Medical Records Attestation: I reviewed the patient's medical records. Discharge Plan Discharge Clinical Impression: Dental infection Sinusitis Qualifiers: Sinusitis location: maxillary Chronicity: acute Recurrence: non-recurrent Qualified Code(s): J01.00 - Acute maxillary sinusitis, unspecified Patient Disposition: Home Condition: Stable Instructions: Sinusitis (ED) Additional Instructions: Take steroids in the morning with food. Take antibiotics until complete. Symptomatic treatment of a sinus infection aims to relieve symptoms. These treatments do not shorten the duration of illness. Flushing the nose and sinuses with a saline solution several times per day has been proven to decrease pain associated with congestion and shorten the duration of symptoms. Nasal steroids (such as Flonase, 2 sprays in each nostril daily) can help to reduce swelling inside the nose, usually within two to three days. These drugs have few side effects and relieve symptoms in most people. Oral decongestants (pseudoephedrine and phenylephrine) may be helpful if you have associated symptoms of ear pain or fullness. Nasal decongestant sprays, including oxymetazoline (Afrin) and phenylephrine (Chato-Synephrine), can be used to temporarily treat congestion. However, these sprays should not be used for more than two to three days due to the risk of rebound congestion (when the nose becomes congested constantly unless the medication is used repeatedly), possible addiction, and long-term consequences of frequent use, including persistent nasal dryness and crusting, which is very difficult to treat once it has developed. Medications to thin secretions (such as guaifenesin) may help to clear mucus. Please follow-up with your primary care doctor in the next 1-2 days. If you cannot follow-up with your primary care doctor please go to the ED for any urgent issues. If you have any worsening of symptoms or any other concerns please go to the ED immediately. Patient Language: Khmer Prescriptions: New prednisone 20 mg tablet 40 mg PO DAILY 5 Days Qty: 10 0RF fluticasone propionate [Flonase Allergy Relief] 50 mcg/actuation spray,suspension 1 spray intranasal DAILY Qty: 16 0RF Rx Instructions: administer into each nostril amoxicillin-pot clavulanate 875-125 mg tablet 1 tablet PO Q12H 10 Days Qty: 20 0RF No Action dextroamphetamine-amphetamine 20 mg capsule,extended release 24hr PO hydroxyzine HCl 25 mg tablet escitalopram oxalate 10 mg tablet Follow-up/Referrals: Ashley,MD Herb [Primary Care Provider] - 3 Days Time of Disposition: 16:55
[2024-10-27 16:38] VITALS: BP 136/96; PULSE 88; RESP 16; TEMP 36.5; O2SAT 99
== END 2024-10-27 17:10 | disposition home or self-care (01) ==
PROVIDERS: Emergency Provider Nurse Practitioner Family; PCP Family Medicine
DX: K04.7 Periapical abscess without sinus (principal); J01.00 Acute maxillary sinusitis, unspecified; J45.909 Unspecified asthma, uncomplicated
CPT/HCPCS: 99213; G0463

== ENCOUNTER 2025-02-26 16:14 | Emergency (ER) | payer OTHER, SELFPAY ==
--- NOTE | 2025-02-26 16:17 | ED_ITS ---
HPI - General Adult General Chief complaint: Dental/Oral Stated complaint: headache Time Seen by Provider: 02/26/25 16:19 Source: patient, RN notes reviewed and old records reviewed Mode of arrival: ambulatory Limitations: no limitations History of Present Illness HPI narrative: 39-year-old female presents to the [facility] with dental pain and swelling that is giving her her typical migraine. States that she has had dental issues, has an appointment to have her teeth removed on March 06. Swelling noted to the right anterior upper gingiva. Related Data Home Medications ?Medication ?Instructions ?Recorded ?Confirmed ?Last Taken ?Type dextroamphetamine-amphetamine ER PO 10/27/24 Unknown History 20 mg 24hr capsule,extend release escitalopram oxalate 10 mg tablet mg 10/27/24 Unknown History hydroxyzine HCl 25 mg tablet mg 10/27/24 Unknown Hist ory albuterol sulfate 90 mcg/actuation inhalation 02/26/25 Unknown History aerosol inhaler Allergies Allergy/AdvReac Type Severity Reaction Status Date / Time prochlorperazine Allergy Intermediate hives Verified 02/26/25 16:29 Review of Systems 2 Review of Systems: All systems reviewed & are unremarkable except as noted in HPI and below Constitutional: Constitutional: Reports as per HPI and Reports headache(s) ENT: Reports as per HPI Cardiovascular: Cardiovascular: Reports no additional cardiovascular complaints, Denies chest pain and Denies dyspnea Respiratory: Respiratory: Reports no additional respiratory complaints, Denies chest congestion, Denies cough and Denies dyspnea Musculoskeletal: Musculoskeletal: Reports no additional musculoskeletal complaints Integumentary/Breasts: Skin/Breast: Reports system reviewed and no additional complaints, except as docu PMFSH Past Medical History Medical History Asthma Social History Social History Smoking status: Never smoker Gender identity (if verbalized by the patient): Female Comments At the time of my signature, I reviewed and agree with the nursing past medical, surgical, social, and family history. There is no relevant family history pertinent to the patient complaint. Exam 2 Const: General: cooperative, healthy appearing, comfortable, no acute distress, well developed, alert and well nourished Nutritional Appearance: w ell nourished Orientation/consciousness: patient oriented x3 Limitations: no limitations HENMT: Head: normal to inspection Mouth: Yes lip normal and Yes tongue normal Teeth and gingiva: gingiva abnormal hypertrophic, edematous and tender and poor dentition Teeth image: 1. swelling, erythema, tenderness with multiple decayed or absent teeth Eyes: General: appearance normal, both eyes and all related structures A lignment and Position: alignment normal Neck: Neck: normal visual inspection, full ROM, no lymphadenopathy and no meningeal signs Chest: Chest palpation & inspection: normal inspection of the chest Resp: Effort & Inspection: normal respiratory effort and able to speak in complete sentences Auscultation: clear to auscultation bilaterally, no crackles, no rales, no rhonchi and no wheezes Cardio: Rate: regular rate Skin: General skin exam: normal color and no rashes or lesions noted Neuro: General: patient oriented x3, gait normal, moves all extremities and no meningeal signs Cognition (Neuro): normal cognition Speech: normal speech Gait exam (Neuro): Normal gait present Extrem: General: normal to inspection, full ROM, capillary refill normal and normal gait Psych: Appearance: grossly normal and well kempt Mental Status: mental status grossly normal Speech and movement: Normal speech and movement present and Clear speech present Affect: normal affect Attitude: cooperative Course Course Level of Care: Express Care Visit Vital Signs Vital signs: Vital Signs Temperature 98.6 F 02/26/25 16:22 Pulse Rate 92 02/26/25 16:22 Respiratory Rate 16 02/26/25 16:22 Blood Pressure 150/109 H 02/26/25 16:22 Pulse Oximetry 100 02/26/25 16:22 Oxygen Delivery Room Air 02/26/25 16:22 Temperature 98.6 F 02/26/25 16:22 Pulse Rate 92 02/26/25 16:22 Respiratory Rate 16 02/26/25 16:22 Blood Pressure 150/109 H 02/26/25 16:22 Pulse Oximetry 100 02/26/25 16:22 Oxygen Delivery Room Air 02/26/25 16:22 Reviewed Medical Decision Making MDM Narrative Medical decision making narrative: patient sitting in exam room. Patient is nontoxic, vitals are stable except blood pressure elevated. Patient states she has a history of high blood pressure but does not take anything for the medications Has an appointment on March 06 with a dental to have her teeth extracted right upper anterior gingival abscess, causing a a typical migraine antibiotics prescribed. Ibuprofen prescribed. Discussed the follow-up both for the dental and her blood pressure. Patient verbalized understanding. Discharge instructions reviewed with patient, as well as provided in writing per nursing staff. The instructions also include specific and strict return/GO TO THE ER as well as f/u information. All questions have been answered, and the patient deny any further questions with discharge and discharge plan. Some parts of this dictation were generated by voice recognition software and may contain typographical and/or grammatical inaccuracies. Differential Diagnosis Differential Diagnosis: Dental decay, dental caries, dental abscess Medical Records Medical records reviewed: Yes I reviewed the external patient's medical records. Vital Signs Vital Signs: Vital Signs Temperature 98.6 F 02/26/25 16:22 Pulse Rate 92 02/26/25 16:22 Respiratory Rate 16 02/26/25 16:22 Blood Pressure 150/109 H 02/26/25 16:22 Pulse Oximetry 100 02/26/25 16:22 Oxygen Delivery Room Air 02/26/25 16:22 Temperature 98.6 F 02/26/25 16:22 Pulse Rate 92 02/26/25 16:22 Respiratory Rate 16 02/26/25 16:22 Blood Pressure 150/109 H 02/26/25 16:22 Pulse Oximetry 100 02/26/25 16:22 Oxygen Delivery Room Air 02/26/25 16:22 Reviewed Lab Data Lab results reviewed: Yes I reviewed the patient's lab results. Labs: Reviewed Critical Care Time Critical Care Time Critical Care Time: No Discharge Plan Discharge Clinical Impression: Headache, Dental infection Patient Disposition: Home Condition: Stable Instructions: Antibiotic Form Additional Instructions: Finish the entire course of antibiotics [place] teeth and using good mouthwash. After every time you eat be sure to use salt water rinses. Apply ice to face to help with pain. Take Tylenol 650mg alternating with [id number] as needed for pain. You can alternate every 4 hours You need to follow-up with a dental provider As scheduled on the 06 of March. Follow up with a Primary Care Provider (PCP) about medical needs. A PCP can help keep you healthy by preventive medicine and screening. Today your blood pressure was 150/109 it is recommended you follow-up with your primary care provider to have this rechecked within 2 weeks Go to the ER for New or worsening symptoms. Patient Language: Algerian Prescriptions: New ibuprofen 600 mg tablet 600 mg PO TID PRN (Reason: fever or pain) Qty: 30 0RF clindamycin HCl [Cleocin HCl] 300 mg capsule 300 mg PO TID 7 Days Qty: 21 0RF No Action dextroamphetamine-amphetamine 20 mg capsule,extended release 24hr PO hydroxyzine HCl 25 mg tablet escitalopram oxalate 10 mg tablet fluticasone propionate [Flonase Allergy Relief] 50 mcg/actuation spray,suspension 1 spray intranasal DAILY Qty: 16 0RF Rx Instructions: administer into each nostril albuterol sulfate 90 mcg/actuation HFA aerosol inhaler INHALATION Follow-up/Referrals: Ashley,MD Herb [Primary Care Provider, Unknown] - 2 Weeks Stand Alone Forms: Work/School Release IP Time of Disposition: 16:31
[2025-02-26 16:22] VITALS: BP 150/109; PULSE 92; RESP 16; TEMP 37; O2SAT 100
== END 2025-02-26 16:35 | disposition home or self-care (01) ==
PROVIDERS: Emergency Provider Nurse Practitioner; PCP Family Medicine
DX: K04.7 Periapical abscess without sinus (principal); R51.9 Headache, unspecified; J45.909 Unspecified asthma, uncomplicated
CPT/HCPCS: 99213; G0463